=== PATIENT | female | born 1950 | race Caucasian/White ===

== ENCOUNTER 2017-07-15 10:59 | Emergency (ER) | payer MEDICARE, OTHER ==
[~2017-07-15] VITALS: Ht 170.2 cm; Wt 104.8 kg
[2017-07-15 11:07] VITALS: BP 228/100
[2017-07-15] MEDS ORDERED: cloNIDine HCL 0.1 MG TAB ONE (11:08)
[2017-07-15] MEDS ORDERED: cloNIDine HCL 0.1 MG TAB PO ONE (11:15)
[2017-07-15 11:55] LABS: Basophils # (auto) 0.1 uL; Basophils % (auto) 0.8 % (0.0-2.0); Eosinophils # (auto) 0.2 uL; Eosinophils % (auto) 2.6 % (0.0-7.0); Hematocrit 46.6 % (36.0-46.0); Hemoglobin 15.9 g/dL (12.2-16.2); Lymphocytes % (auto) 28.2 % (10.0-50.0); Mean Corpuscular Hemoglobin 31.1 pg (28.0-32.0); Mean Corpuscular Volume 91.2 fL (80.0-100.0); Mean Platelet Volume 7.9 fL (6.9-10.8); Monocytes # (auto) 0.7 uL; Monocytes % (auto) 9.2 % (0.0-12.0); Neutrophils # (auto) 4.3 uL; Neutrophils % (auto) 59.2 % (37.0-80.0); Nucleated Red Blood Cells % 0.2 %; Platelet Count (auto) 191 10^3/uL (140-450); Red Cell Distribution Width 13.7 % (11.8-14.3); White Blood Cell 7.2 10^3/uL (4.4-10.8)
[2017-07-15 12:24] LABS: Albumin 3.6 g/dL (3.4-5.0); Alkaline Phosphatase 138 U/L (45-117); Anion Gap 9 (5-15); Aspartate Aminotransferase 14 U/L (15-37); BUN/Creatinine Ratio 26.9; Bilirubin, Total 0.3 mg/dL (0.2-1.0); Blood Urea Nitrogen 39 mg/dL (7-18); Carbon Dioxide 22 mmol/L (21-32); Chloride 108 mmol/L (98-107); GFR African American 47 mL/min; GFR Non-African American 39 mL/min; Glucose 98 mg/dL (74-106); Sodium 139 mmol/L (136-145); Total Protein 7.7 g/dL (6.4-8.2)
== END 2017-07-15 13:59 | disposition left against medical advice (07) ==
LOC: ER 10:59
DX: I16.0 Hypertensive urgency (principal); Z88.8 Allergy status to other drugs, medicaments and biological substances; Z90.89 Acquired absence of other organs; Z53.29 Procedure and treatment not carried out because of patient's decision for other reasons
CPT/HCPCS: 36415; 71020; 80053; 84484; 85025; 93005

== ENCOUNTER 2024-06-27 02:07 | Emergency (ER) | payer OTHER ==
[~2024-06-27] VITALS: Ht 167.6 cm; Wt 5.0 kg
[2024-06-27] MEDS: IPRATROPIUM BROM 0.5 MG/2.5ML INH SOL NEB ONE (02:51)
[2024-06-27] MEDS: ALBUTEROL SULF 2.5 MG/0.5ML(0.5%) NEB SOLN NEB ONE (02:51)
[2024-06-27 03:00] VITALS: PULSE 61; RESP 12; O2SAT 95
[2024-06-27] MEDS: VANCOMYCIN 1GM/250ML 250 ML IV ONE ×3 (05:15→11:45)
[2024-06-27] MEDS: CEFEPIME 2GM/50ML NS 50 ML IV ONE (05:48)
[2024-06-27] MEDS: AZITHROMYCIN 250 MG TAB PO ONE (05:48)
[2024-06-27 06:25] LABS: Chloride 112 mmol/L (98-107); Potassium 5.3 mmol/L (3.5-5.1); Sodium 143 mmol/L (136-145)
[2024-06-27 06:26] LABS: Anion Gap 8 (5-15); Calcium 9.5 mg/dL (8.7-10.4); Carbon Dioxide 23 mmol/L (20-31)
[2024-06-27 06:31] LABS: BUN/Creatinine Ratio 16.5 (10.0-20.0); Blood Urea Nitrogen 53 mg/dL (9-23); Glucose 89 mg/dL (74-106)
[2024-06-27 06:50] LABS: Basophils # (auto) 0.1 10 ^3/uL (0-0.2); Basophils % (auto) 0.6 % (0.0-2.0); Eosinophils # (auto) 0.3 10 ^3/uL (0-0.8); Eosinophils % (auto) 2.7 % (0.0-7.0); Hemoglobin 7.3 g/dL (12.2-16.2); Lymphocytes # (auto) 1.8 10 ^3/uL (0.4-5.4); Lymphocytes % (auto) 19.4 % (10.0-50.0); Mean Corpuscular Hemoglobin 31.9 pg (28.0-32.0); Mean Corpuscular Volume 96.7 fL (80.0-100.0); Monocytes # (auto) 0.7 10 ^3/uL (0-1.3); Monocytes % (auto) 7.2 % (0.0-12.0); Neutrophils # (auto) 6.6 10 ^3/uL (1.6-8.6); Neutrophils % (auto) 70.1 % (37.0-80.0); Nucleated Red Blood Cells % 0.3 %; Platelet Count (auto) 200 10^3/uL (140-450); Red Blood Cells 2.28 10^6/uL (4.0-5.20); Red Cell Distribution Width 18.7 % (11.8-14.3); White Blood Cell 9.4 10^3/uL (4.4-10.8)
[2024-06-27] MEDS: SODIUM ZIRCONIUM CYCL 10 GM PAK PO ONE (09:08)
[2024-06-27 14:31] VITALS: BP 115/45; PULSE 56; RESP 18; TEMP 98.6; O2SAT 95
== END 2024-06-27 16:28 | disposition short-term general hospital (02) ==
LOC: ER 02:07 → EDBD 02:07 → ER 16:28
DX: J18.9 Pneumonia, unspecified organism (principal); R53.1 Weakness; I10 Essential (primary) hypertension; E11.9 Type 2 diabetes mellitus without complications; J45.909 Unspecified asthma, uncomplicated; Z90.89 Acquired absence of other organs; Z87.11 Personal history of peptic ulcer disease
CPT/HCPCS: 36415; 71045; 80048; 83880; 84484; 85025; 93005; 94640; 96365; 96366; 96367; 99291; J0692; J3370

== ENCOUNTER 2024-07-05 22:16 | Inpatient (IN) | payer OTHER ==
[~2024-07-05] VITALS: Ht 165.1 cm; Wt 110.7 kg
[2024-07-05 22:55] VITALS: PULSE 70; RESP 29; O2SAT 93
[2024-07-05] MEDS: ALBUTEROL SULF 2.5 MG/0.5ML(0.5%) NEB SOLN NEB ONE (22:58)
[2024-07-05] MEDS: IPRATROPIUM BROM 0.5 MG/2.5ML INH SOL NEB ONE (22:58)
[2024-07-05 23:10] LABS: Basophils # (auto) 0.1 10 ^3/uL (0-0.2); Basophils % (auto) 0.6 % (0.0-2.0); Eosinophils # (auto) 0.2 10 ^3/uL (0-0.8); Eosinophils % (auto) 2.2 % (0.0-7.0); Hematocrit 24.2 % (36.0-46.0); Hemoglobin 7.8 g/dL (12.2-16.2); Lymphocytes % (auto) 18.2 % (10.0-50.0); Mean Corpuscular Hemoglobin 31.8 pg (28.0-32.0); Mean Corpuscular Hgb Conc. 32.2 g/dL (32.0-36.0); Mean Corpuscular Volume 98.7 fL (80.0-100.0); Monocytes # (auto) 0.6 10 ^3/uL (0-1.3); Monocytes % (auto) 5.5 % (0.0-12.0); Neutrophils # (auto) 7.9 10 ^3/uL (1.6-8.6); Neutrophils % (auto) 73.5 % (37.0-80.0); Nucleated Red Blood Cells % 0.1 %; Platelet Count (auto) 207 10^3/uL (140-450); Red Blood Cells 2.45 10^6/uL (4.0-5.20); Red Cell Distribution Width 20.6 % (11.8-14.3); White Blood Cell 10.8 10^3/uL (4.4-10.8)
[2024-07-05 23:16] LABS: Chloride 112 mmol/L (98-107); Potassium 5.3 mmol/L (3.5-5.1); Sodium 142 mmol/L (136-145)
[2024-07-05 23:17] LABS: Anion Gap 6 (5-15); Calcium 9.5 mg/dL (8.7-10.4); Carbon Dioxide 24 mmol/L (20-31)
[2024-07-05 23:22] LABS: BUN/Creatinine Ratio 15.5 (10.0-20.0); Blood Urea Nitrogen 42 mg/dL (9-23); Glucose 130 mg/dL (74-106)
[2024-07-05] MEDS: methylPREDNISolone SOD SUCC 125 MG/2 ML VL IV ONE (23:23)
[2024-07-06] VITALS (21 sets, daily range): BP systolic 103–157; BP diastolic 48–79; PULSE 58–86; RESP 17–20; TEMP 96.7–98.7; O2SAT 92–100
[2024-07-06] MEDS: AZITHROMYCIN 250 MG TAB PO ONE (00:26)
[2024-07-06] MEDS: IPRATROPIUM BROM 0.5 MG/2.5ML INH SOL NEB PRN (05:26)
[2024-07-06] MEDS: ALBUTEROL SULF 2.5 MG/0.5ML(0.5%) NEB SOLN NEB PRN (05:26)
[2024-07-06] MEDS ORDERED: hydrALAZINE HCL 20 MG/ML VL IV PRN (05:45)
[2024-07-06] MEDS ORDERED: DEXTROSE (50%) 50ML SYRG IV PRN (05:45)
[2024-07-06 06:06] LABS: Base Excess -4.8 mmol/L (-2.0-3.0)
[2024-07-06 06:21] LABS: Basophils # (auto) 0.1 10 ^3/uL (0-0.2); Eosinophils # (auto) 0 10 ^3/uL (0-0.8); Hemoglobin 7.6 g/dL (12.2-16.2); Monocytes # (auto) 0.1 10 ^3/uL (0-1.3)
[2024-07-06] MEDS: PANTOPRAZOLE 40 MG/10 ML VIAL INJ IV SCH ×2 (06:25→21:19)
[2024-07-06] MEDS: methylPREDNISolone SOD SUCC 40 MG/ML VL IV SCH (06:25)
[2024-07-06] MEDS: cefTRIAXone 1GM/50ML D5W 50 ML IV ONE (06:26)
[2024-07-06] MEDS: MAGNESIUM SULFATE 1GM/100ML 100 ML IV ONE (06:26)
[2024-07-06 06:27] LABS: Basophils % (auto) 0.7 % (0.0-2.0); Eosinophils % (auto) 0.1 % (0.0-7.0); Hematocrit 23.5 % (36.0-46.0); Lymphocytes # (auto) 0.6 10 ^3/uL (0.4-5.4); Lymphocytes % (auto) 6.5 % (10.0-50.0); Mean Corpuscular Hemoglobin 31.9 pg (28.0-32.0); Mean Corpuscular Hgb Conc. 32.4 g/dL (32.0-36.0); Mean Corpuscular Volume 98.4 fL (80.0-100.0); Monocytes % (auto) 1.2 % (0.0-12.0); Neutrophils % (auto) 91.5 % (37.0-80.0); Nucleated Red Blood Cells % 0.1 %; Platelet Count (auto) 187 10^3/uL (140-450); Red Blood Cells 2.39 10^6/uL (4.0-5.20); Red Cell Distribution Width 20.1 % (11.8-14.3); White Blood Cell 8.7 10^3/uL (4.4-10.8)
[2024-07-06] MEDS: ALBUTEROL SULF 2.5 MG/0.5ML(0.5%) NEB SOLN NEB ONE (06:28)
[2024-07-06] MEDS: ALBUTEROL SULF 2.5 MG/0.5ML(0.5%) NEB SOLN ONE (06:29)
[2024-07-06 06:34] LABS: INR 1.12 (0.9-1.15); Partial Thromboplastin Time 32.1 SEC (24.5-34.5); Prothrombin Time 11.8 sec (9.3-11.8)
[2024-07-06 06:38] LABS: Alanine Aminotransferase 11 U/L (7-40); Albumin 3.9 g/dL (3.2-4.8); Alkaline Phosphatase 89 U/L (46-116); Anion Gap 7 (5-15); Aspartate Aminotransferase 11 U/L (13-40); BUN/Creatinine Ratio 16.1 (10.0-20.0); Bilirubin, Total 0.4 mg/dL (0.2-1.0); Blood Urea Nitrogen 46 mg/dL (9-23); Calcium 9.8 mg/dL (8.7-10.4); Carbon Dioxide 22 mmol/L (20-31); Chloride 112 mmol/L (98-107); Glucose 197 mg/dL (74-106); Sodium 141 mmol/L (136-145); Total Protein 7.3 g/dL (5.7-8.2)
[2024-07-06 06:45] LABS: Potassium 6.1 mmol/L (3.5-5.1)
[2024-07-06] MEDS: ACCU-CHEK COMFORT CURVE STRIP VI SCH (06:54)
[2024-07-06] MEDS: InsuLIN REG 1unit/0.01ml Soln (100units/ml) SC SCH (06:59)
[2024-07-06 07:03] LABS: Rapid Influenza A Negative (Negative); Rapid Influenza B Negative (Negative)
[2024-07-06 07:04] LABS: COVID19 ANTIGEN SOFIA FIA NEGATIVE (NEGATIVE)
[2024-07-06] MEDS: FUROSEMIDE 20 MG/2 ML VIAL IV ONE (07:10)
[2024-07-06] MEDS: DEXTROSE (50%) 50ML SYRG IV ONE ×2 (07:27→14:43)
[2024-07-06] MEDS: InsuLIN REG 1unit/0.01ml Soln (100units/ml) IV ONE ×2 (07:28→10:45)
[2024-07-06] MEDS: SODIUM BICARB 8.4% 50Meq/50ml SYR INJ IV ONE ×2 (07:28→14:43)
[2024-07-06 07:42] LABS: Base Excess -7.4 mmol/L (-2.0-3.0)
[2024-07-06] MEDS ORDERED: cefTRIAXone 1GM/50ML D5W 50 ML IV SCH (09:00)
[2024-07-06] MEDS: IPRATROPIUM BROM 0.5 MG/2.5ML INH SOL NEB SCH (09:47)
[2024-07-06] MEDS: ALBUTEROL SULF 2.5 MG/0.5ML(0.5%) NEB SOLN NEB SCH (09:47)
[2024-07-06] MEDS ORDERED: ENOXAPARIN SOD 30 MG/0.3 ML SYRINGE SC SCH (10:00)
[2024-07-06] MEDS ORDERED: CEFEPIME 1GM/ 50ML 50 ML IV SCH (10:00)
[2024-07-06] MEDS ORDERED: FUROSEMIDE 40 MG/4 ML VIAL IV SCH (10:00)
[2024-07-06] MEDS ORDERED: AZITHROMYCIN 500MG/ 250ML 250 ML IV SCH (10:00)
[2024-07-06 10:35] LABS: Triglycerides 55 mg/dL (< 150)
[2024-07-06 10:36] LABS: LDL Cholesterol 44 mg/dL (< 100)
[2024-07-06 10:37] LABS: Cholesterol 107 mg/dL (< 200); HDL Cholesterol 53 mg/dL (40-59)
[2024-07-06 10:48] LABS: Base Excess -5.1 mmol/L (-2.0-3.0)
[2024-07-06 11:02] LABS: Folate (Folic Acid) 5.9 ng/mL (>5.38)
[2024-07-06 11:08] LABS: Ferritin 220.1 ng/mL (10-291)
[2024-07-06] MEDS: INSULIN LANTUS (GLARGINE) 1 /0.01ml (100units/ml) SC ONE (11:15)
[2024-07-06] MEDS: BUMETANIDE 2.5mg/10ml (0.25 mg/ml) INJ IV ONE (11:15)
[2024-07-06] MEDS: MEROPENEM 500MG IVPB 50 ML IV SCH (11:36)
[2024-07-06] MEDS: DOXYCYCLINE 100MG/250ML 250 ML IV SCH (11:36)
[2024-07-06 12:07] LABS: Magnesium 2.3 mg/dL (1.6-2.6)
[2024-07-06 12:09] LABS: Phosphorus 5.4 mg/dL (2.4-5.1)
[2024-07-06] MEDS: IRON SUCROSE COMPLEX 100 ML IV SCH (12:15)
[2024-07-06] MEDS: FUROSEMIDE 40 MG/4 ML VIAL IV ONE (12:28)
[2024-07-06 12:54] LABS: % Iron Saturation 9.4 % (15-50)
[2024-07-06 13:01] LABS: Chloride 111 mmol/L (98-107); Sodium 142 mmol/L (136-145)
[2024-07-06 13:02] LABS: Anion Gap 7 (5-15); Carbon Dioxide 24 mmol/L (20-31)
[2024-07-06 13:03] LABS: Calcium 9.4 mg/dL (8.7-10.4)
[2024-07-06 13:07] LABS: Glucose 190 mg/dL (74-106)
[2024-07-06 13:08] LABS: BUN/Creatinine Ratio 18.4 (10.0-20.0); Blood Urea Nitrogen 53 mg/dL (9-23)
[2024-07-06] MEDS ORDERED: PANT40TA2 PO (13:12)
[2024-07-06] MEDS ORDERED: APIX5TAB PO (13:12)
[2024-07-06] MEDS ORDERED: GABA-1308 PO (13:12)
[2024-07-06] MEDS ORDERED: [UNRECOGNIZED DRUG - CODE] PO (13:12)
[2024-07-06] MEDS ORDERED: ATOR40TA52 PO (13:12)
[2024-07-06] MEDS ORDERED: BISO5TAB44 PO (13:12)
[2024-07-06] MEDS ORDERED: FLUT500M2 INH (13:12)
[2024-07-06] MEDS ORDERED: CALC0.25 PO (13:12)
[2024-07-06] MEDS ORDERED: SEVE800T8 PO (13:12)
[2024-07-06] MEDS ORDERED: AMLO1TAB22 PO (13:12)
[2024-07-06] MEDS ORDERED: FLUT0.05 NAS (13:12)
[2024-07-06] MEDS ORDERED: QUET100T47 PO (13:12)
[2024-07-06 13:16] LABS: Potassium 5.8 mmol/L (3.5-5.1)
[2024-07-06] MEDS ORDERED: CHOL500035 PO (13:16)
[2024-07-06] MEDS ORDERED: [UNRECOGNIZED DRUG - CODE] IJ (13:16)
[2024-07-06 13:25] LABS: Hepatitis B Surface Antigen Negative (Negative)
[2024-07-06] MEDS ORDERED: TRAZ-227 PO (13:29)
[2024-07-06] MEDS ORDERED: TIOTCAP IN (13:29)
[2024-07-06 13:46] LABS: Hepatitis C Antibody Negative (Negative)
[2024-07-06] MEDS: SODIUM ZIRCONIUM CYCL 10 GM PAK PO SCH (14:00)
[2024-07-06 14:18] LABS: Urine Bacteria None Seen /hpf (None Seen)
[2024-07-06 14:36] LABS: Urine Blood Negative /uL (Negative); Urine Clarity Clear (Clear); Urine Color Light-Yellow (Yellow); Urine Protein, UAD Negative (Negative); Urine Specific Gravity 1.011 (1.001-1.035); Urine Urobilinogen Normal (Negative); Urine WBC 1 /hpf (0 - 5)
[2024-07-06 14:41] LABS: Sodium Urine 77 mmol/L (40-220)
[2024-07-06] MEDS: CALCIUM GLUC 1,000mg/50ml-NS 50 ML IV ONE (14:42)
[2024-07-06 14:46] LABS: Protein, Urine 24.5 mg/dL (1-14)
[2024-07-06 14:48] LABS: Amphetamine Screen, Urine Neg (NEGATIVE); Barbiturate Scree,Urine Neg (NEGATIVE); Benzodiazephine Screen, Urine Neg (NEGATIVE); Cannabinoid Screen, Urine Neg (NEGATIVE); Cocaine Screen, Urine Neg (NEGATIVE); Opiate Scree,Urine Neg (NEGATIVE); Phencyclidine Screen, Urine Neg (NEGATIVE)
[2024-07-06 15:33] LABS: Creatinine, Urine 63.91 mg/dL (30.0-125.0); Urine Protein/Creatinine Ratio 0.38
[2024-07-06 16:11] LABS: Hematocrit 23.6 % (36.0-46.0); Hemoglobin 7.7 g/dL (12.2-16.2)
[2024-07-06 16:20] LABS: Chloride 108 mmol/L (98-107); Potassium 4.8 mmol/L (3.5-5.1); Sodium 140 mmol/L (136-145)
[2024-07-06 16:21] LABS: Anion Gap 9 (5-15); Calcium 9.9 mg/dL (8.7-10.4); Carbon Dioxide 23 mmol/L (20-31)
[2024-07-06 16:26] LABS: BUN/Creatinine Ratio 16.9 (10.0-20.0); Blood Urea Nitrogen 50 mg/dL (9-23); Glucose 250 mg/dL (74-106)
[2024-07-06] MEDS: FUROSEMIDE 40 MG/4 ML VIAL IV SCH (18:51)
[2024-07-06] MEDS: QUEtiapine FUMARATE 100 MG TAB PO SCH (21:19)
[2024-07-06] MEDS: ATORVASTATIN 20 MG TAB PO SCH (21:20)
[2024-07-06] MEDS: GABAPENTIN 100 MG CAP PO SCH (21:21)
[2024-07-06] MEDS: PROCHLORPERAZINE EDISYLATE 5 MG/ML 2ML VIAL ONE (21:28)
[2024-07-06] MEDS: traZODone HCL 50 MG TAB PO SCH (21:48)
[2024-07-07] VITALS (16 sets, daily range): BP systolic 123–140; BP diastolic 44–68; PULSE 61–88; RESP 16–22; TEMP 97.7–98.8; O2SAT 94–100
[2024-07-07 07:48] LABS: Basophils # (auto) 0 10 ^3/uL (0-0.2); Eosinophils # (auto) 0 10 ^3/uL (0-0.8); Lymphocytes # (auto) 0.5 10 ^3/uL (0.4-5.4); Lymphocytes % (auto) 5.2 % (10.0-50.0); Nucleated Red Blood Cells % 0.2 %
[2024-07-07 07:53] LABS: Basophils % (auto) 0.1 % (0.0-2.0); Hematocrit 20.2 % (36.0-46.0); Mean Corpuscular Hemoglobin 32.9 pg (28.0-32.0); Mean Corpuscular Hgb Conc. 33.4 g/dL (32.0-36.0); Mean Corpuscular Volume 98.4 fL (80.0-100.0); Monocytes # (auto) 0.4 10 ^3/uL (0-1.3); Monocytes % (auto) 3.7 % (0.0-12.0); Neutrophils # (auto) 8.8 10 ^3/uL (1.6-8.6); Platelet Count (auto) 196 10^3/uL (140-450); Red Blood Cells 2.05 10^6/uL (4.0-5.20); White Blood Cell 9.6 10^3/uL (4.4-10.8)
[2024-07-07 07:58] LABS: Hemoglobin 6.7 g/dL (12.2-16.2); Red Cell Distribution Width 20.2 % (11.8-14.3)
[2024-07-07 08:10] LABS: Alanine Aminotransferase 11 U/L (7-40); Alkaline Phosphatase 73 U/L (46-116); Anion Gap 8 (5-15); BUN/Creatinine Ratio 18.8 (10.0-20.0); Blood Urea Nitrogen 57 mg/dL (9-23); Calcium 9.5 mg/dL (8.7-10.4); Carbon Dioxide 24 mmol/L (20-31); Chloride 108 mmol/L (98-107); Glucose 182 mg/dL (74-106); Potassium 4.8 mmol/L (3.5-5.1); Sodium 140 mmol/L (136-145)
[2024-07-07 08:11] LABS: Albumin 3.6 g/dL (3.2-4.8)
[2024-07-07 08:12] LABS: Aspartate Aminotransferase 8 U/L (13-40); Bilirubin, Total 0.3 mg/dL (0.2-1.0); Total Protein 6.6 g/dL (5.7-8.2)
[2024-07-07] MEDS: SEVELAMER 800 MG TAB PO SCH (08:16)
[2024-07-07 08:36] LABS: Magnesium 2.3 mg/dL (1.6-2.6)
[2024-07-07] MEDS: CITALOPRAM HYDROBR 20 MG TAB PO SCH (09:30)
[2024-07-07] MEDS: CALCITRIOL 0.25 MCG CAP PO SCH (09:30)
[2024-07-07] MEDS: FUROSEMIDE 40 MG/4 ML VIAL IV ONE (09:34)
[2024-07-07] MEDS: PANTOPRAZOLE 40 MG/10 ML VIAL INJ IV SCH (09:36)
[2024-07-07] MEDS: methylPREDNISolone SOD SUCC 40 MG/ML VL IV SCH (09:38)
[2024-07-07] MEDS: INSULIN LANTUS (GLARGINE) 1 /0.01ml (100units/ml) SC SCH (09:42)
[2024-07-07] MEDS: CHOLECALCIFEROL (VITD3) 1,000UNIT=25mCg TAB PO SCH (09:51)
[2024-07-07] MEDS ORDERED: PATIENTS OWN MEDICATION (Cholecalciferol (Vitamin D) 5,000 UNIT) PO SCH (10:00)
[2024-07-07] MEDS ORDERED: ESCITALOPRAM OXALATE 10 MG PO SCH (10:00)
[2024-07-07 17:17] LABS: Hematocrit 28.5 % (36.0-46.0); Hemoglobin 9.1 g/dL (12.2-16.2)
[2024-07-08] VITALS (14 sets, daily range): BP systolic 106–138; BP diastolic 4–83; PULSE 60–77; RESP 16–22; TEMP 97.7–98.7; O2SAT 94–100
[2024-07-08 06:53] LABS: Basophils # (auto) 0 10 ^3/uL (0-0.2); Basophils % (auto) 0.1 % (0.0-2.0); Eosinophils # (auto) 0 10 ^3/uL (0-0.8); Hematocrit 26.4 % (36.0-46.0); Hemoglobin 8.7 g/dL (12.2-16.2); Lymphocytes # (auto) 0.9 10 ^3/uL (0.4-5.4); Lymphocytes % (auto) 8.2 % (10.0-50.0); Mean Corpuscular Hemoglobin 31.7 pg (28.0-32.0); Mean Corpuscular Hgb Conc. 32.9 g/dL (32.0-36.0); Mean Corpuscular Volume 96.3 fL (80.0-100.0); Monocytes # (auto) 0.7 10 ^3/uL (0-1.3); Monocytes % (auto) 6.7 % (0.0-12.0); Neutrophils # (auto) 9.1 10 ^3/uL (1.6-8.6); Nucleated Red Blood Cells % 0.3 %; Platelet Count (auto) 212 10^3/uL (140-450); Red Blood Cells 2.75 10^6/uL (4.0-5.20); Red Cell Distribution Width 22.2 % (11.8-14.3); White Blood Cell 10.7 10^3/uL (4.4-10.8)
[2024-07-08 07:07] LABS: Chloride 107 mmol/L (98-107); Potassium 4.2 mmol/L (3.5-5.1); Sodium 141 mmol/L (136-145)
[2024-07-08 07:08] LABS: Anion Gap 8 (5-15); Calcium 9.6 mg/dL (8.7-10.4); Carbon Dioxide 26 mmol/L (20-31)
[2024-07-08 07:13] LABS: BUN/Creatinine Ratio 21.6 (10.0-20.0); Blood Urea Nitrogen 69 mg/dL (9-23); Glucose 107 mg/dL (74-106)
[2024-07-09] VITALS (19 sets, daily range): BP systolic 123–139; BP diastolic 47–68; PULSE 62–82; RESP 14–19; TEMP 97.6–98.1; O2SAT 75–100
[2024-07-09 06:52] LABS: Basophils # (auto) 0 10 ^3/uL (0-0.2); Basophils % (auto) 0.1 % (0.0-2.0); Eosinophils # (auto) 0 10 ^3/uL (0-0.8); Hematocrit 27.1 % (36.0-46.0); Hemoglobin 8.9 g/dL (12.2-16.2); Lymphocytes # (auto) 1.1 10 ^3/uL (0.4-5.4); Lymphocytes % (auto) 12.7 % (10.0-50.0); Mean Corpuscular Hemoglobin 31.9 pg (28.0-32.0); Mean Corpuscular Hgb Conc. 32.9 g/dL (32.0-36.0); Monocytes # (auto) 0.5 10 ^3/uL (0-1.3); Monocytes % (auto) 6.6 % (0.0-12.0); Neutrophils # (auto) 6.7 10 ^3/uL (1.6-8.6); Neutrophils % (auto) 80.6 % (37.0-80.0); Nucleated Red Blood Cells % 0.4 %; Platelet Count (auto) 213 10^3/uL (140-450); Red Blood Cells 2.79 10^6/uL (4.0-5.20); Red Cell Distribution Width 21.6 % (11.8-14.3); White Blood Cell 8.3 10^3/uL (4.4-10.8)
[2024-07-09 07:15] LABS: Chloride 111 mmol/L (98-107); Potassium 4.9 mmol/L (3.5-5.1); Sodium 144 mmol/L (136-145)
[2024-07-09 07:16] LABS: Anion Gap 7 (5-15); Calcium 9.2 mg/dL (8.7-10.4); Carbon Dioxide 26 mmol/L (20-31)
[2024-07-09 07:21] LABS: BUN/Creatinine Ratio 22.6 (10.0-20.0); Glucose 112 mg/dL (74-106)
[2024-07-09 08:12] LABS: Blood Urea Nitrogen 81 mg/dL (9-23)
[2024-07-09] MEDS ORDERED: DEXTROSE (50%) 50ML SYRG IV PRN (08:15)
[2024-07-09] MEDS: ACCU-CHEK COMFORT CURVE STRIP VI SCH (11:30)
[2024-07-09] MEDS: InsuLIN REG 1unit/0.01ml Soln (100units/ml) SC SCH (11:30)
[2024-07-09] MEDS: SODIUM FERR GLUC 62.5MG/5ML 110 ML IV SCH (12:00)
[2024-07-09] MEDS: GASTROGRAFIN 120 ML SOL ONE (22:22)
[2024-07-10] VITALS (18 sets, daily range): BP systolic 99–144; BP diastolic 36–91; PULSE 67–85; RESP 16–21; TEMP 97.6–98.1; O2SAT 91–99
[2024-07-10 07:34] LABS: Hematocrit 27.9 % (36.0-46.0); Mean Corpuscular Hemoglobin 31.7 pg (28.0-32.0); Mean Corpuscular Hgb Conc. 32.4 g/dL (32.0-36.0); Platelet Count (auto) 204 10^3/uL (140-450); Red Blood Cells 2.84 10^6/uL (4.0-5.20); White Blood Cell 7.1 10^3/uL (4.4-10.8)
[2024-07-10 07:35] LABS: Red Cell Distribution Width 21.6 % (11.8-14.3)
[2024-07-10 07:37] LABS: Basophils % (manual) 0 (0.0-2.0); Blast Cells 0; Metamyelocytes % 0; Myelocytes % 0; Promyelocytes % 0; Reactive Lymphocytes 0
[2024-07-10 07:44] LABS: Albumin 3.4 g/dL (3.2-4.8); Alkaline Phosphatase 78 U/L (46-116); Anion Gap 8 (5-15); Aspartate Aminotransferase < 8 U/L (13-40); BUN/Creatinine Ratio 23.9 (10.0-20.0); Blood Urea Nitrogen 75 mg/dL (9-23); Calcium 9.1 mg/dL (8.7-10.4); Carbon Dioxide 26 mmol/L (20-31); Chloride 110 mmol/L (98-107); Glucose 70 mg/dL (74-106); Magnesium 1.9 mg/dL (1.6-2.6); Potassium 4.6 mmol/L (3.5-5.1); Sodium 144 mmol/L (136-145)
[2024-07-10 07:45] LABS: Bilirubin, Total 0.5 mg/dL (0.2-1.0); Total Protein 6.1 g/dL (5.7-8.2)
[2024-07-10 07:46] LABS: Alanine Aminotransferase < 9 U/L (7-40)
[2024-07-10 08:16] LABS: Band Neutrophils % (manual) 3; Eosinophils % (manual) 5 (0-7); Lymphocytes % (manual) 23 (10.0-50.0); Monocytes % (manual) 10 (0-12)
[2024-07-10 08:17] LABS: Anisocytosis Moderate; Platelet Estimate Adequate
[2024-07-10] MEDS: FUROSEMIDE 40 MG/4 ML VIAL IV SCH (09:27)
[2024-07-10] MEDS: SODIUM FERR GLUC 62.5MG/5ML 110 ML IV SCH (11:58)
[2024-07-10] MEDS: POLYETHYLENE GLYCOL 17 GM PWDR PO ONE (15:35)
[2024-07-10] MEDS: SUCRALFATE 1 GM TAB PO SCH (21:31)
[2024-07-11] VITALS (13 sets, daily range): BP systolic 117–142; BP diastolic 54–67; PULSE 65–82; RESP 16–21; TEMP 97.8–98.2; O2SAT 94–100
[2024-07-11 07:32] LABS: Basophils # (auto) 0 10 ^3/uL (0-0.2); Basophils % (auto) 0.1 % (0.0-2.0); Eosinophils # (auto) 0 10 ^3/uL (0-0.8); Eosinophils % (auto) 0.5 % (0.0-7.0); Hematocrit 26.9 % (36.0-46.0); Lymphocytes # (auto) 1.1 10 ^3/uL (0.4-5.4); Lymphocytes % (auto) 14.7 % (10.0-50.0); Mean Corpuscular Hemoglobin 32.5 pg (28.0-32.0); Mean Corpuscular Hgb Conc. 33.4 g/dL (32.0-36.0); Mean Corpuscular Volume 97.2 fL (80.0-100.0); Monocytes # (auto) 0.4 10 ^3/uL (0-1.3); Monocytes % (auto) 5.4 % (0.0-12.0); Neutrophils # (auto) 6.1 10 ^3/uL (1.6-8.6); Neutrophils % (auto) 79.3 % (37.0-80.0); Nucleated Red Blood Cells % 0.5 %; Platelet Count (auto) 197 10^3/uL (140-450); Red Blood Cells 2.76 10^6/uL (4.0-5.20); Red Cell Distribution Width 20.9 % (11.8-14.3); White Blood Cell 7.7 10^3/uL (4.4-10.8)
[2024-07-11 07:43] LABS: Anion Gap 9 (5-15); Carbon Dioxide 25 mmol/L (20-31); Chloride 108 mmol/L (98-107); Potassium 4.6 mmol/L (3.5-5.1); Sodium 142 mmol/L (136-145)
[2024-07-11 07:44] LABS: Calcium 9.3 mg/dL (8.7-10.4)
[2024-07-11 07:48] LABS: Glucose 111 mg/dL (74-106)
[2024-07-11 07:49] LABS: BUN/Creatinine Ratio 24.5 (10.0-20.0); Blood Urea Nitrogen 75 mg/dL (9-23)
[2024-07-11] MEDS ORDERED: FLUMAZENIL 0.1 MG/ML INJ 10ML MDV IV ONE (10:07)
[2024-07-11] MEDS ORDERED: NALOXONE HCL 0.4 MG/ML VIAL ONE (10:07)
[2024-07-11] MEDS ORDERED: MIDAZOLAM HCL 5 MG/ML-1ML VIAL ONE (10:12)
[2024-07-11] MEDS ORDERED: SODIUM CHLORIDE LOCK 10 ML ONE (10:13)
[2024-07-11] MEDS ORDERED: fentaNYL CITRATE 100 MCG/2 ML VL ONE (10:13)
== END 2024-07-11 18:25 | disposition short-term general hospital (02) | DRG 177 ==
LOC: ER 22:16 → EDBD 22:16 → TELE 07-06 05:18 → TELE-CENTR 07-06 10:32
PROVIDERS: ADMIT Internal Medicine; ATTEND Internal Medicine
PROC: 5A09357 Assistance with Respiratory Ventilation, Less than 24 Consecutive Hours, Continuous Positive Airway Pressure (ICD-10-PCS; 2024-07-06)
PROC: 30233N1 Transfusion of Nonautologous Red Blood Cells into Peripheral Vein, Percutaneous Approach (ICD-10-PCS; principal; 2024-07-07)
PROC: 05HD33Z Insertion of Infusion Device into Right Cephalic Vein, Percutaneous Approach (ICD-10-PCS; 2024-07-09)
PROC: B54MZZA Ultrasonography of Right Upper Extremity Veins, Guidance (ICD-10-PCS; 2024-07-09)
DX: J15.69 Pneumonia due to other Gram-negative bacteria (principal); G93.41 Metabolic encephalopathy; J96.22 Acute and chronic respiratory failure with hypercapnia; N17.0 Acute kidney failure with tubular necrosis; J96.21 Acute and chronic respiratory failure with hypoxia; J44.1 Chronic obstructive pulmonary disease with (acute) exacerbation; I50.32 Chronic diastolic (congestive) heart failure; I13.0 Hypertensive heart and chronic kidney disease with heart failure and stage 1 through stage 4 chronic kidney disease, or unspecified chronic kidney disease; J98.11 Atelectasis; N18.4 Chronic kidney disease, stage 4 (severe); I13.2 Hypertensive heart and chronic kidney disease with heart failure and with stage 5 chronic kidney disease, or end stage renal disease; Z68.41 Body mass index [BMI] 40.0-44.9, adult; J69.0 Pneumonitis due to inhalation of food and vomit; J15.9 Unspecified bacterial pneumonia; Z20.822 Contact with and (suspected) exposure to COVID-19; D63.1 Anemia in chronic kidney disease; E66.01 Morbid (severe) obesity due to excess calories; I05.8 Other rheumatic mitral valve diseases; F17.210 Nicotine dependence, cigarettes, uncomplicated; E87.5 Hyperkalemia; E11.22 Type 2 diabetes mellitus with diabetic chronic kidney disease; I71.40 Abdominal aortic aneurysm, without rupture, unspecified; Z87.11 Personal history of peptic ulcer disease; Z86.718 Personal history of other venous thrombosis and embolism; Z82.49 Family history of ischemic heart disease and other diseases of the circulatory system; Z99.81 Dependence on supplemental oxygen; Z99.2 Dependence on renal dialysis; Z86.79 Personal history of other diseases of the circulatory system; Z82.5 Family history of asthma and other chronic lower respiratory diseases; Z88.8 Allergy status to other drugs, medicaments and biological substances; Z79.899 Other long term (current) drug therapy; Z91.041 Radiographic dye allergy status
CPT/HCPCS: 36415; 36600; 71045; 71250; 74176; 76604; 76775; 80048; 80053; 80061; 80307; 81001; 82306; 82550; 82570; 82607; 82728; 82746; 82805; 82962; 83036; 83540; 83550; 83605; 83735; 83880; 83935; 83970; 84100; 84156; 84300; 84443; 84484; 85007; 85014; 85018; 85025; 85027; 85045; 85379; 85610; 85730; 86803; 86850; 86900; 86901; 86920; 87040; 87081; 87340; 87426; 87804; 93005; 93306; 93970; 94640; 94644; 94660; 96374; 97163; 99291; G0378; J1756; J1815; J2185; J2250; J2470; J3490